=== PATIENT | female | born 1990 | race Caucasian/White ===

== ENCOUNTER 2019-02-19 15:15 | Emergency (ER) | payer OTHER ==
[2019-02-19 16:10] VITALS: TEMP 98.7
[2019-02-19] MEDS ORDERED: SODIUM CHLORIDE 0.9% 1,000 ML IV ONE (16:54)
[2019-02-19 17:29] VITALS: BP 128/83; PULSE 76; RESP 20
[2019-02-19 17:35] LABS: Basophils % (A) 1 %; Eosinophils # (A) 0.2 k/uL (0-0.7); Eosinophils % (A) 4 %; HCT 43.6 % (34.0-46.0); HGB 14.6 gm/dL (11.4-16.0); Lymphocytes # (A) 2.3 k/uL (1.0-4.8); Lymphocytes % (A) 40 %; MCH 26.8 pg (25.0-35.0); MCHC 33.5 g/dL (31.0-37.0); MCV 80.1 fL (80.0-100.0); Monocytes # (A) 0.2 k/uL (0-1.0); Monocytes % (A) 4 %; Neutrophils # (A) 2.8 k/uL (1.3-7.7); Neutrophils % (A) 50 %; Platelet Count 262 k/uL (150-450); RBC 5.44 m/uL (3.80-5.40); RDW 13.8 % (11.5-15.5); WBC 5.7 k/uL (3.8-10.6)
--- NOTE | 2019-02-19 17:41 | ED ---
Female Urogenital HPI - General Chief complaint: Vaginal Bleeding Stated complaint: Vaginal bleeding, post hysterectomy Time Seen by Provider: 02/19/19 16:50 Source: patient, family Mode of arrival: ambulatory Limitations: no limitations - History of Present Illness Initial comments: 28-year-old female past history of told instructed before November 17 with surgical complications of infection. Patient states she has not been on antibiotic from over a month. Patient denies fever. She states since the surgery she has had chronic RLQ pain, she states she has been evaluated on multiple occasions at [facility]. Patient states she feels like her OBGYN is not offering her answers. Patient states she has had the same pain, but is now bleeding from the vagina, as though she is having a light period. Patient was sexually active for the second time post operation within last 48 hours. Patient was concerned pain was so persistent and presented to the ER for evaluation of bleeding and pain. Patient denies any recent shortness of breath, chest pain, back pain, nausea or vomiting, numbness or tingling, dysuria or hematuria, constipation or diarrhea, headaches or visual changes, or any other complaints. Upon arrival patient appears well no signs of acute distress. - Related Data Allergies Allergy/AdvReac Type Severity Reaction Status Date / Time codeine Allergy Nausea & Verified 02/19/19 16:11 Vomiting Review of Systems ROS Statement: Those systems with pertinent positive or pertinent negative responses have been documented in the HPI. ROS Other: All systems not noted in ROS Statement are negative. Past Medical History Additional Past Medical History / Comment(s): cyst in ovary History of Any Multi-Drug Resistant Organisms: None Reported Past Surgical History: Appendectomy, Section, Hysterectomy, Tubal Ligation Additional Past Surgical History / Comment(s): D&C Smoking Status: Never smoker Past Alcohol Use History: None Reported Past Drug Use History: Marijuana General Exam - General Exam Comments Initial Comments: General: The patient is awake and alert, in no distress, and does not appear acutely ill. Eye: +3mm pupils are equal, round and reactive to light, extra-ocular movements are intact. No nystagmus. There is normal conjunctiva bilaterally. No signs of icterus. Ears, nose, mouth and throat: There are moist mucous membranes and no oral lesions. Neck: The neck is supple, there is no tenderness or JVD. Cardiovascular: There is a regular rate and rhythm. No murmur, rub or gallop is appreciated. Respiratory: Lungs are clear to auscultation, respirations are non-labored, breath sounds are equal. No wheezes, stridor, rales, or rhonchi. Gastrointestinal: Soft, non-distended, abdomen mildly tender to the RLQ, mid pelvic region. There is a scar of the lower pelvic region on erythematous, healed. Abdomen without masses or organomegaly noted. There is no rebound or gu arding present. No CVA tenderness. Bowel sounds are unremarkable. Pelvic: Normal female hair pattern. Vaginal mucosa pink well rugated. Vaginal cough present, small amount of blood near the cough. No evidence of dehiscence. On bimanual exam no obvious defect of cuff, cannnot fully palpate cough due to length of vagina. No large amount of blood, clots, discharge or odor. Musculoskeletal: Normal ROM, no tenderness. Strength 5/5. Sensation intact. Pulses equal bilaterally 2+. Neurological: A&O x 3. CN II-XII intact, There are no obvious motor or sensory deficits. Coordination appears grossly intact. Speech is normal. Skin: Skin is warm and dry and no rashes or lesions are noted. Psychiatric: Cooperative, appropriate mood & affect, normal judgment. Limitations: no limitations Course Vital Signs 02/19/19 02/19/19 16:05 17:26 Temperature 98.7 F Pulse Rate 74 76 Respiratory 18 20 Rate Blood Pressure 133/87 128/83 O2 Sat by Pulse 100 100 Oximetry Medical Decision Making - Medical Decision Making Well-appearing 28-year-old female presenting for postoperative abdominal pain, vaginal bleeding. Concern for her cough dehiscence with complaint of vaginal bleeding and recent sexual activity. No palpable dehiscence on bimanual or v isual dehiscence on pelvic examination. CT of the abdomen reveals no pneumoperitoneum or signs sister with acute abdomen or pneumoperitoneum. Patient was not tender on bimanual examination. Patient HgB and WBC count WNL. This I feel patient's pain is more so chronic. Discussed the case attending provider Dr. Nicolas who reviewed imaging and laboratory studies, he recommended discharge with outpatient OBGYN f/u. I recommended pelvic rest until f/u. Patient is agreeable with plan and discharge. - Lab Data Result diagrams: 02/19/19 17:23 02/19/19 17:23 Lab Results 02/19/19 02/19/19 02/19/19 Range/Units 17:23 17:23 18:00 WBC 5.7 (3.8-10.6) k/uL RBC 5.44 H (3.80-5.40) m/uL Hgb 14.6 (11.4-16.0) gm/dL Hct 43.6 (34.0-46.0) % MCV 80.1 (80.0-100.0) fL MCH 26.8 (25.0-35.0) pg MCHC 33.5 (31.0-37.0) g/dL RDW 13.8 (11.5-15.5) % Plt Count 262 (150-450) k/uL Neutrophils % 50 % Lymphocytes % 40 % Monocytes % 4 % Eosinophils % 4 % Basophils % 1 % Neutrophils # 2.8 (1.3-7.7) k/uL Lymphocytes # 2.3 (1.0-4.8) k/uL Monocytes # 0.2 (0-1.0) k/uL Eosinophils # 0.2 (0-0.7) k/uL Basophils # 0.0 (0-0.2) k/uL Sodium 142 (137-145) mmol/L Potassium 4.1 (3.5-5.1) mmol/L Chloride 107 (98-107) mmol/L Carbon Dioxide 25 (22-30) mmol/L Anion Gap 10 mmol/L BUN 16 (7-17) mg/dL Creatinine 0.60 (0.52-1.04) mg/dL Est GFR (CKD-EPI)AfAm >90 (>60 ml/min/1.73 sqM) Est GFR (CKD-EPI)NonAf >90 (>60 ml/min/1.73 sqM) Glucose 83 (74-99) mg/dL Calcium 9.9 (8.4-10.2) mg/dL Total Bilirubin 1.3 (0.2-1.3) mg/dL AST 21 (14-36) U/L ALT 24 (9-52) U/L Alkaline Phosphatase 61 (38-126) U/L Total Protein 8.2 (6.3-8.2) g/dL Albumin 4.9 (3.5-5.0) g/dL Urine HCG, Qual Not Detected (Not Detectd) Trichomonas Ag (Rapid) (Negative) 02/19/19 Range/Units 18:00 WBC (3.8-10.6) k/uL RBC (3.80-5.40) m/uL Hgb (11.4-16.0) gm/dL Hct (34.0-46.0) % MCV (80.0-100.0) fL MCH (25.0-35.0) pg MCHC (31.0-37.0) g/dL RDW (11.5-15.5) % Plt Count (150-450) k/uL Neutrophils % % Lymphocytes % % Monocytes % % Eosinophils % % Basophils % % Neutrophils # (1.3-7.7) k/uL Lymphocytes # (1.0-4.8) k/uL Monocytes # (0-1.0) k/uL Eosinophils # (0-0.7) k/uL Basophils # (0-0.2) k/uL Sodium (137-145) mmol/L Potassium (3.5-5.1) mmol/L Chloride (98-107) mmol/L Carbon Dioxide (22-30) mmol/L Anion Gap mmol/L BUN (7-17) mg/dL Creatinine (0.52-1.04) mg/dL Est GFR (CKD-EPI)AfAm (>60 ml/min/1.73 sqM) Est GFR (CKD-EPI)NonAf (>60 ml/min/1.73 sqM) Glucose (74-99) mg/dL Calcium (8.4-10.2) mg/dL Total Bilirubin (0.2-1.3) mg/dL AST (14-36) U/L ALT (9-52) U/L Alkaline Phosphatase (38-126) U/L Total Protein (6.3-8.2) g/dL Albumin (3.5-5.0) g/dL Urine HCG, Qual (Not Detectd) Trichomonas Ag (Rapid) Negative (Negative) Disposition Clinical Impression: Postoperative pain, Vaginal bleeding Disposition: HOME SELF-CARE Condition: Good Instructions (If sedation given, give patient instructions): Hysterectomy (DC) Additional Instructions: Please use medication as discussed. Please follow-up with family doctor in the next 2 days, please follow-up with your established OBGYN until new OBGYN care is established. Please return to emergency room if the symptoms increase or wo rsen or for any other concerns. Is patient prescribed a controlled substance at d/c from ED?: No Referrals: Kalani Hewitt MD [Primary Care Provider] - 1-2 days Thomas Abraham MD [STAFF PHYSICIAN] - 1-2 days Negar Murillo MD [STAFF PHYSICIAN] - 1-2 days Alayna Miller MD [STAFF PHYSICIAN] - 1-2 days Time of Disposition: 19:59
[2019-02-19 17:45] LABS: ALT 24 U/L (9-52); AST 21 U/L (14-36); Albumin 4.9 g/dL (3.5-5.0); Alkaline Phosphatase 61 U/L (38-126); Anion Gap 10 mmol/L; Blood Urea Nitrogen 16 mg/dL (7-17); Calcium 9.9 mg/dL (8.4-10.2); Carbon Dioxide 25 mmol/L (22-30); Chloride 107 mmol/L (98-107); Glucose 83 mg/dL (74-99); Potassium 4.1 mmol/L (3.5-5.1); Sodium 142 mmol/L (137-145); Total Bilirubin 1.3 mg/dL (0.2-1.3); Total Protein 8.2 g/dL (6.3-8.2)
--- NOTE | 2019-02-19 19:24 | CT ---
EXAMINATION TYPE: CT abdomen pelvis w con DATE OF EXAM: 02/19/2019 COMPARISON: None HISTORY: Hysterectomy 319. Abscess and drainage following that surgery. Right lower quadrant pain since. Vaginal bleeding today. CT DLP: 810.3 mGycm Automated exposure control for dose reduction was used. TECHNIQUE: Helical acquisition of images was performed from the lung bases through the pelvis. CONTRAST: Performed without Oral Contrast and with IV Contrast, patient injected with 100 mL of Isovue 300. FINDINGS: Lung bases are clear. There is no pleural effusion. Heart size is normal. There is no pericardial eff usion. Stomach appears normal. Liver spleen pancreas all bladder appear normal. Bile ducts are not di lated. There is no adrenal mass. Kidneys show satisfactory contrast opacification. There is no hydron ephrosis. There is no retroperitoneal adenopathy. Bladder distends smoothly. There is no inguinal her jessica. There is no free fluid in the pelvis. There is hysterectomy. There is no sign of a pelvic mass. Appendix is small with calcification. There is no sign of appendicitis. Lumbar spine is intact. Disc spaces are normal. Bony pelvis is intact. IMPRESSION: NEGATIVE CT SCAN OF THE ABDOMEN AND PELVIS. NO SIGN OF APPENDICITIS. NO EVIDENCE OF ABSCESS OR OTHER FLUID.
[2019-02-21 15:46] LABS: C. trachomatis,PCR Negative (Neg,Equiv); Chlamydia trachomatis Source Vagina
[2019-02-21 15:48] LABS: N. gonorrhoeae,PCR Negative (Neg,Equiv); Neisseria Source Vagina
== END 2019-02-19 20:12 | disposition home or self-care (01) ==
LOC: EC 15:15
DX: N99.820 Postprocedural hemorrhage of a genitourinary system organ or structure following a genitourinary system procedure (principal); G89.18 Other acute postprocedural pain; R10.31 Right lower quadrant pain; Z90.710 Acquired absence of both cervix and uterus; Z88.5 Allergy status to narcotic agent
CPT/HCPCS: 99284; 96360; 96361; 36415; 80053; 85025; 81025; 87808; 87491; 87591; 87070; 74177; Q9967; 87205